=== PATIENT | female | born 1955 | race Caucasian/White ===

== ENCOUNTER → 2016-10-09 | Outpatient (CLI) | payer BC | END | disposition home or self-care (01) | LOC: PCVCIMAG 12:30 | PROVIDERS: ATTEND Internal Medicine Cardiovascular Disease | DX: I35.0 Nonrheumatic aortic (valve) stenosis (principal); I10 Essential (primary) hypertension; E78.5 Hyperlipidemia, unspecified; I26.99 Other pulmonary embolism without acute cor pulmonale; Z79.01 Long term (current) use of anticoagulants | CPT/HCPCS: 80061; 93005; 93306; G0463 ==

== ENCOUNTER → 2018-04-22 | Outpatient (CLI) | payer BC ==
--- NOTE | 2018-04-22 11:32 | PCVCIMAG ---
APPROVED REPORT Study performed: 04/22/2018 10:21:45 EXAM: Comprehensive 2D, Doppler, and color-flow Echocardiogram Patient Location: Echo lab Status: routine BSA: 1.97 HR: 65 bpmBP: 174/100 mmHg Rhythm: NSR Other Information Study Quality: Adequate Risk Factors: Cardiac Risk Factors: HTN Indications aortic stenosis, obesity 2D Dimensions IVSd: 14.02 (7-11mm)LVOT Diam: 21.07 (18-24mm) LVDd: 33.72 mm PWd: 12.71 (7-11mm)Ascending Ao: 31.34 (22-36mm) LVDs: 26.83 (25-40mm) Left Atrium: 32.56 (27-40mm) Aortic Root: 30.20 mm LV Single Plane 4CH: 62.14 % LV Single Plane 2CH: 64.14 % Biplane EF: 64.2 % Volumes Left Atrial Volume (Systole) Single Plane 4CH: 48.71 mLSingle Plane 2CH: 77.50 mL LA ESV Index: 32.00 mL/m2 Aortic Valve AoV Peak Shola.: 2.96 m/s AO Peak Gr.: 35.13 mmHgLVOT Max P.50 mmHg AO Mean Gr.: 18.69 mmHgLVOT Mean P.67 mmHg AO V2 Mean: 2.04 m/sLVOT Max V: 1.17 m/s AO V2 VTI: 70.48 cmLVOT Mean V: 0.78 m/s PRIYA (VTI): 1.42 [id number] V1 VTI: 28.77 cm PRIYA Vmax: 1.38 cm2 SV (LVOT): 100.21 mL Mitral Valve E/A Ratio: 0.85 MV Decel. Time: 277.66 ms MV E Max Shola.: 0.85 m/s MV A Shola.: 1.01 m/s IVRT: 93.43 ms Pulmonary Valve PV Peak Shola.: 0.94 m/sPV Peak Gr.: 3.53 mmHg Pulmonary Vein P Vein S: 0.39 m/sP Vein A: 0.30 m/s P Vein D: 0.51 m/sP Vein A Dur.: 107.3 msec Left Ventricle The left ventricle is normal size. There is normal LV segmental wall motion. Mild concentric left ventricular hypertrophy. Left ventricular systolic function is normal. The left ventricular ejection fraction is within the normal range. LVEF is 60%. Grade I - abnormal relaxation pattern. Right Ventricle The right ventricle is normal size. The right ventricular systolic function is normal. Atria The left atrium size is normal. The right atrium size is normal. Aortic Valve Moderate aortic valve sclerosis. No aortic regurgitation is present. There is mild valvular aortic stenosis. Calculated aortic valve area is 1.4 cm2 with maximum pressure gradient of 35 mmHg and mean pressure gradient of 19 mmHg. Mitral Valve The mitral valve is normal in structure. There is no mitral valve regurgitation noted. No evidence of mitral valve stenosis. Tricuspid Valve The tricuspid valve is normal in structure. There is no tricuspid valve regurgitation noted. Pulmonic Valve The pulmonary valve is normal in structure. There is no pulmonic valvular regurgitation. Great Vessels The aortic root is normal in size. IVC is normal in size and collapses >50% with inspiration. Pericardium There is no pericardial effusion. There is no pleural effusion. <Conclusion> The left ventricle is normal size. Mild concentric left ventricular hypertrophy. LVEF is 60%. Grade I - abnormal relaxation pattern. The right ventricle is normal size. The left atrium size is normal. Moderate aortic valve sclerosis. There is mild valvular aortic stenosis. Calculated aortic valve area is 1.4 cm2 with maximum pressure gradient of 35 mmHg and mean pressure gradient of 19 mmHg. The mitral valve is normal in structure. The aortic root is normal in size. There is no pericardial effusion.
== END | disposition home or self-care (01) ==
LOC: PCVCIMAG 10:21
PROVIDERS: ATTEND Internal Medicine Cardiovascular Disease
DX: I35.0 Nonrheumatic aortic (valve) stenosis (principal); I10 Essential (primary) hypertension; E78.5 Hyperlipidemia, unspecified
CPT/HCPCS: 93306